=== PATIENT | male | born 1950 | race Caucasian/White ===

== ENCOUNTER 2018-12-13 08:34 | Emergency (ER) | payer OTHER, MEDICARE ==
[2018-12-13] MEDS ORDERED: LIDOCAINE 5% TOPICAL PATCH TP ONE (08:36)
--- NOTE | 2018-12-13 08:37 | PDOC ---
History of Present Illness - General Chief Complaint: Pain Stated Complaint: BACKPAIN DIFFICULTY LIFTING LEFT LEG COUPLE W Time Seen by Provider: 12/13/18 08:36 History Source: Patient Exam Limitations: No Limitations - History of Present Illness Initial Comments: 12/13/18 09:17 HPI 68 YOM with h/o carotid stenosis on plavix, GERD, hypothyroidism Presenting with left sided lower buttock pain x 2-3 weeks, worse with movement and lifting the leg over the past 3-4 days. This morning he had difficulty lifting his left leg, but able to ambulate. He took Advil PM last night as well as this morning with some relief. He denies trauma, but does admit to various strenuous activities such as playing golf and doing yard work and gardening. He has upcoming appt with orthopedist at [facility] Dr Estes on 01/17/19. He has history of similar symptoms ~8 months ago, which his orthopedist attributed to piriformis inflammation, strain of sacroiliac joint and resolved with Physical therapy. Denies fever, chills, weakness, N, V, D, abdominal pain, bladder and bowel problems, saddle anesthesia, paresthesias, leg swelling Allergies: None Past Medical History: carotid stenosis on plavix, GERD, hypothyroidism Social history: Lives with family. No tobacco, ETOH or drug use. Surgical history: none Meds: as documented in EMR Ortho: Dr Estes at [place] Past History - Past Medical History Allergies/Adverse Reactions: Allergies Allergy/AdvReac Type Severity Reaction Status Date / Time No Known Allergies Allergy Unverified 12/13/18 08:44 Home Medications: Ambulatory Orders Alprazolam [Xanax Xr] 0.5 mg PO PRN 12/13/18 Clopidogrel Bisulfate [Plavix] 1 tab PO DAILY 12/13/18 Cyclobenzaprine HCl [Flexeril 10 mg] 10 mg PO TID PRN #15 tablet 12/13/18 Diclofenac Epolamine [Flector] 1 each TD BID PRN #10 adh..patch 12/13/18 Levothyroxine [Synthroid -] 125 mcg PO DAILY 12/13/18 Lidocaine 5% Patch [Lidoderm Patch -] 1 patch TP DAILY PRN #7 patch 12/13/18 Ranitidine [Zantac -] 1 tab PO DAILY 12/13/18 Review of Systems - Review of Systems Able to Perform ROS?: Yes Comments:: 12/13/18 09:19 Review of systems Constitutional: no fevers or chills. MUSCULOSKELETAL: No joint pain and swelling. No muscle pain/arthralgias. Back: +buttock and back pain SKIN: no redness or skin changes, no discharge, no rash. No wounds. Hematologic: no easy bruising/bleeding. NEUROLOGIC: No weakness, numbness or tingling. Allergic/Immunologic: no allergies All other systems reviewed and negative, or as documented in HPI. *Physical Exam - Physical Exam Comments: 12/13/18 09:19 Physical exam: General: NAD, well appearing Vascular: 2+ DP pulses symmetric and equal. Abdomen: soft, ND, nontender, no flank tenderness, no peritoneal signs. Back: no midline tenderness, no stepoffs, FROM MSK: notable for soft compartments, Cap refill <2 sec. Proximal and distal strength 5/5, executive chef assistant strength 5/5 - equal and symmetric. Plantar flexion and dorsiflexion 5/5. FROM. Sensation grossly intact to light touch. No calf tenderness. SLR negative bilaterally. +Point tenderness to left lower buttock lateral to the sacral-coccyx region. No hip tenderness, pelvis stable, FROM at the prox and distal joints of lower extrem. Neuro: alert, no focal neurologic deficits. 2+ patellar reflexes bilaterally Skin: color normal color, warm and well perfused. Cap refill <2 sec. Medical Decision Making - Medical Decision Making 12/13/18 08:40 Vital Signs Temp Pulse Resp BP Pulse Ox 97.8 F 57 L 16 137/77 100 12/13/18 08:35 12/13/18 08:35 12/13/18 08:35 12/13/18 08:35 12/13/18 08:35 The patient presents with acute onset of back pain after at least 2-3 weeks after various activities. Clinically this patient can be ruled out for serious pathology given there is a completely normal neurological exam, no history of IV drug use, and no history of bowel or bladder incontinence, no perianal numbness/tingling, no constipation or urinary retention. In the ED given analgesia topical lido patch and tylenol. Once the patients pain was adequately controlled, the patient was able to ambulate and be discharged in stable condition with anticipatory guidance provided. Can ambulate as tolerated , no heavy lifting, range of motion exercises encouraged. Rx meds, side effects reviewed, prn for analgesia/spasms. 12/13/18 09:19 *DC/Admit/Observation/Transfer Diagnosis at time of Disposition: Strain of left buttock - Discharge Dispostion Disposition: HOME Condition at time of disposition: Stable Decision to Admit order: No - Prescriptions Prescriptions: Cyclobenzaprine HCl [Flexeril 10 mg] 10 mg PO TID PRN #15 tablet PRN Reason: Muscle Spasms Diclofenac Epolamine [Flector] 1 each TD BID PRN #10 adh..patch PRN Reason: Pain Lidocaine 5% Patch [Lidoderm Patch -] 1 patch TP DAILY PRN #7 patch PRN Reason: Pain - Referrals Referrals: Bulmaro Esquivel MD [Staff Physician] - OhChris MD [Staff Physician] - - Patient Instructions Printed Discharge Instructions: DI for Low Back Pain, Exercise May Reduce Risk of Low Back Pain Additional Instructions: you most likely have musculoskeletal strain of your lower back/buttock on the left side adjacent to your coccyx-sacral region. avoid heavy lifting or strenuous activity to minimize further injury such as running or golfing flexeril is a muscle relaxant, take three times a day as needed may cause sleepiness, do not drive or operate machinery or take with alcohol. topical lidoderm patch to the area affected, 12 hours on and 12 hours off.. you can also elect to use topical diclofenac patch every 12 hours on the affected area as needed for moderate pain. May take ibuprofen 400mg and/or tylenol 650 to 975 mg every 6 hours as needed for mild to moderate pain, available over the counter. This does not require narcotics, as it will precipitate injuries and falls. continue with range of motion exercises, as this will facilitate the healing process; avoid being bed bound and immobile. RICE rest ice elevate the affected extremity Rest your back, Elevation your leg (above the heart). Follow up with your primary care physician in 1 week if symptoms persist, or with orthopedics if needed. Follow up with primary doctor/specialist services provided as well. orthopedics referrals given. you can follow with yours as scheduled for PT therapy This should heal over the next 3-5 days up to 1 week-2 weeks. - Post Discharge Activity
[2018-12-13] MEDS ORDERED: LIDOCAINE 5% TOPICAL PATCH ONE (08:55)
[2018-12-13 09:03] VITALS: BP 137/77; PULSE 57; TEMP 97.8; BMI 21.2
[2018-12-13] MEDS ORDERED: ACETAMINOPHEN 325 MG TABLET (FP) PO ONE (09:06)
[2018-12-13] MEDS ORDERED: ACETAMINOPHEN 325 MG TABLET (FP) ONE (09:18)
== END 2018-12-13 09:24 | disposition home or self-care (01) ==
LOC: FER 08:34
DX: S39.012A Strain of muscle, fascia and tendon of lower back, initial encounter (principal); X58.XXXA Exposure to other specified factors, initial encounter; Y93.89 Activity, other specified; Y92.89 Other specified places as the place of occurrence of the external cause; E03.9 Hypothyroidism, unspecified; I65.29 Occlusion and stenosis of unspecified carotid artery; K21.9 Gastro-esophageal reflux disease without esophagitis
CPT/HCPCS: 99282-25

== ENCOUNTER 2019-01-16 23:54 | Emergency (ER) | payer OTHER, MEDICARE ==
--- NOTE | 2019-01-17 00:02 | PDOC ---
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 According to patient's , the patient awakened from nap approximately 10:15 PM tonight and was disoriented. He apparently stumbled on his way to the bathroom; his and daughter witnessed this and he apparently had no direct head trauma or loss of consciousness. He was then able to get up by himself and ambulate without difficulty. There were no abnormal movements/incontinence or postictal period. However, over the next hour, he was consistently confused about events of the day (for example not remembering that he worked in the yard earlier and that he and his went to a movie during the evening). According to the , the patient then had an episode of apparent delusional thought(described foot tumor that he apparently never had) In the previous episodes of memory loss (which began in September of this year ) he regained alertness very quickly. Over the last 6 weeks, the patient has been seen by his nurse advisor as well as by neurologist (both at [place]) and according to his , had tests to investigate carotid blood flow as well as CT/MRI/MRA which apparently showed no significant abnormality. He was seen by neurologist () 3 days ago and no specific diagnosis given. Patient denies pain; he has had no recent fever or acute infectious symptoms. He had a glass appear at dinner tonight (which is his usual alcohol intake daily ; he denies smoking/other drug use. Past History - Past Medical History Allergies/Adverse Reactions: Allergies Allergy/AdvReac Type Severity Reaction Status Date / Time No Known Allergies Allergy Unverified 12/13/18 08:44 Home Medications: Ambulatory Orders Alprazolam [Xanax Xr] 0.5 mg PO PRN 12/13/18 Clopidogrel Bisulfate [Plavix] 1 tab PO DAILY 12/13/18 Levothyroxine [Synthroid -] 125 mcg PO DAILY 12/13/18 Ramipril 10 mg PO DAILY 01/17/19 Rosuvastatin Calcium 40 mg PO DAILY 01/17/19 COPD: No HTN: Yes Hypercholesterolemia: Yes Thyroid Disease: Yes (HYPO) - Suicide/Smoking/Psychosocial Hx Smoking History: Never smoked Hx Alcohol Use: Yes (1 BEER/DAY) Drug/Substance Use Hx: No Review of Systems - Review of Systems Able to Perform ROS?: Yes Comments:: 12 point review of systems is negative except for what is noted in the history of present illness *Physical Exam - Physical Exam Comments: GENERAL: Adult male, awake and oriented to person and place. Cooperative and in no acute distress HEAD: Normal with no signs of trauma. EYES: PERRLA, EOMI, sclera anicteric, conjunctiva clear. ENT: Ears normal, nares patent, oropharynx clear without exudates. Moist mucous membranes. NECK: Normal range of motion, supple without lymphadenopathy, JVD, or masses. No bruits Tissue loss on left side of neck consistent with radical neck dissection LUNGS: Breath sounds equal, clear to auscultation bilaterally. No wheezes, and no crackles. HEART:Regular rate and rhythm, normal S1 and S2 without murmur, rub or gallop. ABDOMEN:.normal bowel sounds No guarding,tenderness or rebound.No masses No distention. EXTREMITIES: Normal range of motion, no edema. No clubbing or cyanosis. No erythema, or tenderness. NEUROLOGICAL: Cranial nerves II through XII grossly intact. Pupils 2 mm , equal and reactive Normal fluent and clear speech. Motor and sensory functioning intact; no pronator drift; finger to nose normal bilaterally Evidence of short-term memory loss: Disoriented to year and to events of the day, asking multiple times why he is in the ER, Does not remember having CT when he first arrived in the emergency room MUSCULOSKELETAL: Back non-tender to palpation, no CVA tenderness SKIN: Warm, Dry, normal turgor, no rashes or lesions noted. ED Treatment Course - LABORATORY CBC & Chemistry Diagram: 01/17/19 01:35 01/17/19 01:35 Medical Decision Making - Medical Decision Making Noncontrast head CT performed: Preliminary interpretation by Imaging environmental field team member-no definite acute hemorrhage/mass/infarct. There is a 5 mm hyperdense upper right cerebellar area suspected to be artifact rather than hemorrhage with short-term follow-up CT suggested. No fracture seen. There is minimal chronic small vessel ischemic changes This 68-year-old man presents with acute confusional state on a background of intermittent episodes of reversible memory loss of unclear etiology. No clear trigger evident for ralph's more prolonged altered mental status. Exam reveals no evidence of focal neurologic deficit but ongoing confusion. Noncontrast head CT reveals no acute intracranial pathology. Although patient has been evaluated in the last several weeks for his episodes of transient memory loss, basic labs performed tonight to evaluate for reversible causes current episode 01/17/19 03:39 Results of laboratory evaluation are normal except for evidence of mild prerenal azotemia (BUN 2 1 with creatinine of 0.9). No evidence of metabolic etiology of current prolonged episode of confusion. Results discussed with the patient and his . Upon discussing results with the patient, it became clear that his acute confusion/disorientation had cleared. He is now lucid without evidence of retrograde or antegrade memory loss. He understood results of the evaluation and the reasons for the workup. No other evidence of delusion thought has occurred while he has been here in the ER. He is not agitated or upset and does not appear to be danger to himself or to his family members. Since extensive workup has been performed recently without abnormality being found and ralph's evaluation for acute , reversible causes for acute confusion reveal none present, admission to the hospital is not currently required. Patient has attentive family members, he can be return to the ER promptly if he has any deterioration of his mental state. Meanwhile, he will carefully maintain his hydration and avoid strenuous activities over the next few days. Follow-up with his neurologist(Dr Gallardo) should occur in the near future; they will call the office on January 18 to arrange this follow-up. Message will be left with Dr. Gallardo, or whomever is covering for her, that the patient presented to the ER *DC/Admit/Observation/Transfer Diagnosis at time of Disposition: Temporary amnesia - Discharge Dispostion Disposition: HOME Condition at time of disposition: Stable - Referrals - Patient Instructions Printed Discharge Instructions: Amnesia Additional Instructions: Drink plenty of water Continue medications as prescribed Avoid strenuous activity over the next few days Call your neurologist (Dr Gallardo) on January 18 to arrange follow-up over the next 48 hours Return to ER if you have severe memory loss that is not reversing, loss of consciousness, signs of stroke or agitation - Post Discharge Activity
[2019-01-17 00:08] VITALS: BP 153/79; PULSE 61; TEMP 97.8; BMI 21.4
[2019-01-17 02:17] LABS: BASO % 0.7 % (0-2.0); EOS % 2.8 % (0-4.5); HEMATOCRIT 39.1 % (35.4-49); HEMOGLOBIN 12.8 GM/dL (11.7-16.9); LYMPH % 10.1 % (8-40); MCH 28.5 pg (25.7-33.7); MCHC 32.7 g/dl (32.0-35.9); MEAN CELL VOLUME 87.1 fl (80-96); MEAN PLT VOLUME 9.1 fl (7.5-11.1); MONO % 8.7 % (3.8-10.2); NEUT % 77.7 % (42.8-82.8); PLATELET COUNT 207 K/MM3 (134-434); RBC 4.49 M/mm3 (4.00-5.60); WHITE BLOOD COUNT 6.4 K/mm3 (4.0-10.0)
[2019-01-17 02:32] LABS: INR 0.92 (0.83-1.09); PROTHROMBIN TIME (PATIENT) 10.8 SEC (9.7-13.0)
[2019-01-17 02:57] LABS: ALBUMIN 3.9 g/dl (3.4-5.0); ALK PHOS 78 U/L (45-117); ANION GAP 8 MMOL/L (8-16); BILIRUBIN,TOTAL 0.2 mg/dL (0.2-1); BLOOD UREA NITROGEN 21.1 mg/dL (7-18); CALCIUM 8.6 mg/dL (8.5-10.1); CHLORIDE 105 mmol/L (98-107); CO2 25 mmol/L (21-32); CREATININE 0.9 mg/dL (0.55-1.3); GLUCOSE,RANDOM 114 mg/dL (74-106); POTASSIUM 4.2 mmol/L (3.5-5.1); SGOT/AST 18 U/L (15-37); SGPT/ALT 25 U/L (13-61); SODIUM 138 mmol/L (136-145); TOT PROT 6.8 g/dl (6.4-8.2)
== END 2019-01-17 03:20 | disposition home or self-care (01) ==
LOC: FER 23:54
DX: R41.3 Other amnesia (principal); I10 Essential (primary) hypertension; E78.00 Pure hypercholesterolemia, unspecified; E03.9 Hypothyroidism, unspecified
CPT/HCPCS: 36415; 70450-TC; 80053; 80307; 84443; 85025; 85610; 99282-25

== ENCOUNTER 2019-04-09 21:45 | Inpatient (IN) | payer OTHER, MEDICARE | END 2019-04-10 15:15 | disposition home or self-care (01) | LOC: FM/S 04-10 00:34 → FER 21:45 → FM/S 23:34 ==

== ENCOUNTER 2022-05-27 12:10 | Emergency (ER) | payer OTHER, MEDICARE ==
[2022-05-27 12:31] VITALS: RESP 20; TEMP 98.2; BMI 21.2
[2022-05-27] MEDS ORDERED: SODIUM CHLORIDE 1,000 ML IV ONE ×2 (13:13→15:17)
[2022-05-27 14:10] LABS: HEMATOCRIT 35.6 % (35.4-49); HEMOGLOBIN 12.2 G/dL (11.7-16.9); MCH 29.7 pg (25.7-33.7); MCHC 34.2 g/dl (32.0-35.9); MEAN CELL VOLUME 86.9 fl (80-96); MEAN PLT VOLUME 8.3 fl (7.5-11.1); PLATELET COUNT 155.7 10^3/uL (134-434); RDW 15.1 % (11.9-15.9); WHITE BLOOD COUNT 6.1 10^3/uL (4.0-10.8)
[2022-05-27 14:42] LABS: CALCIUM 8.9 mg/dl (8.5-10)
[2022-05-27 14:50] LABS: ALBUMIN 3.8 g/dl (3.4-5.0); BILIRUBIN,TOTAL 0.5 mg/dl (0.2-1); CREATININE 1.5 mg/dl (0.55-1.3); TOT PROT 6.5 g/dl (6.4-8.2)
[2022-05-27 15:07] VITALS: BP 98/58; PULSE 59
[2022-05-27 17:40] LABS: CALCIUM 8.4 mg/dl (8.5-10); CREATININE 1.3 mg/dl (0.55-1.3)
== END 2022-05-27 18:14 | disposition home or self-care (01) ==
LOC: FER 12:10
PROC: 3E0337Z Introduction of Electrolytic and Water Balance Substance into Peripheral Vein, Percutaneous Approach (ICD-10-PCS; principal; 2022-05-27)
PROC: 3E0337Z Introduction of Electrolytic and Water Balance Substance into Peripheral Vein, Percutaneous Approach (ICD-10-PCS; 2022-05-27)
DX: U07.1 COVID-19 (principal); E87.1 Hypo-osmolality and hyponatremia; E86.0 Dehydration; N17.9 Acute kidney failure, unspecified
CPT/HCPCS: 36415; 80048; 80053; 83735; 84484; 85027; 93005; 99284-25; C9803-CS; U0003; U0005

== ENCOUNTER 2022-12-01 14:30 | Emergency (ER) | payer OTHER, MEDICARE ==
[2022-12-01 14:50] VITALS: TEMP 97.8; BMI 22.0
[2022-12-01 14:56] LABS: HEMATOCRIT 39.8 % (35.4-49); HEMOGLOBIN 13.6 G/dL (11.7-16.9); MCH 30.3 pg (25.7-33.7); MCHC 34.2 g/dl (32.0-35.9); MEAN CELL VOLUME 88.6 fl (80-96); MEAN PLT VOLUME 9.2 fl (7.5-11.1); PLATELET COUNT 199.9 10^3/uL (134-434); RBC 4.49 10^6/uL (4.00-5.60); RDW 14.8 % (11.9-15.9); WHITE BLOOD COUNT 7.1 10^3/uL (4.0-10.8)
[2022-12-01 15:05] LABS: ALBUMIN 4.3 g/dl (3.4-5.0); BILIRUBIN,TOTAL 0.7 mg/dl (0.2-1); CALCIUM 9.1 mg/dl (8.5-10); CREATININE 1.7 mg/dl (0.55-1.3); TOT PROT 6.9 g/dl (6.4-8.2)
[2022-12-01] MEDS ORDERED: SODIUM CHLORIDE 1,000 ML IV STA (15:21)
[2022-12-01 15:31] LABS: OVALOCYTE 2+
[2022-12-01 15:59] VITALS: BP 114/65; PULSE 54; RESP 17
== END 2022-12-01 16:12 | disposition home or self-care (01) ==
LOC: FER 14:30
PROC: 3E0337Z Introduction of Electrolytic and Water Balance Substance into Peripheral Vein, Percutaneous Approach (ICD-10-PCS; principal; 2022-12-01)
DX: R07.9 Chest pain, unspecified (principal); R06.02 Shortness of breath; M54.2 Cervicalgia; M54.9 Dorsalgia, unspecified; E86.0 Dehydration
CPT/HCPCS: 36415; 71046-TC-FY; 80053; 84484; 85027; 93005; 96360; 99285-25